=== PATIENT | female | born 1965 | race Caucasian/White ===

== ENCOUNTER 2016-10-31 18:45 | Emergency (ER) | payer BC ==
[~2016-10-31] VITALS: Ht 165.1 cm; Wt 68.0 kg
[2016-10-31 18:45] VITALS: BP 108/62
--- NOTE | 2016-10-31 18:59 | Emergency Room Report ---
History of Present Illness General Chief Complaint: Abdominal Pain Source: Patient, EMS Present Illness HPI Patient presents with complaints of lower abdominal pain Patient presents by paramedics 2 weeks ago patient had increased pain in the right lower abdominal region had CAT scan with oral and IV contrast at that time which revealed a likely ovarian cyst Patient last week had pelvic ultrasound again which showed likely ruptured ovarian cyst Patient reports that she was somewhat anemic as well and has been taking iron pills Earlier this evening just prior to arrival patient had an episode of acute pain in the mid lower abdomen with radiation bilaterally Patient was in contact with her OB physician and was sent to the emergency room Report of the pain is significantly better than previous at this time reports it is 3/10 patient had a vomiting episode with the pain Denies any previous abdominal surgeries Allergies: Coded Allergies: No Known Allergies (Unverified , 10/31/16) Patient History Past Medical History: see triage record Pertinent Family History: none Reviewed Nursing Documentation: PMH: Agreed, PSxH: Agreed Nursing Documentation-PMH Past Medical History: No History, Except For Hx Pacemaker: No - HYPOTHYROIDSM Hx Gastrointestinal Problems: Yes - OVARIAN CYST Review of Systems All Other Systems: negative except mentioned in HPI Physical Exam Vital Signs Date Time Temp Pulse Resp B/P (MAP) Pulse Ox O2 Delivery O2 Flow Rate FiO2 10/31/16 18:39 98.4 74 20 108/62 97 Room Air Sp02 EP Interpretation: reviewed, normal General Appearance: well appearing, no apparent distress Head: normocephalic, atraumatic Eyes: bilateral eye PERRL, bilateral eye EOMI ENT: hearing grossly normal, normal pharynx, TMs + canals normal, uvula midline Neck: full range of motion, supple, no meningismus, no bony tend Respiratory: lungs clear, normal breath sounds, no rhonchi, no respiratory distress, no retraction, no accessory muscle use Cardiovascular #1: normal peripheral pulses, regular rate, rhythm, no edema, no gallop, no JVD, no murmur Gastrointestinal: normal bowel sounds, soft, no mass, no organomegaly, non- distended, no guarding, no hernia, no pulsatile mass, no rebound, other - Mild discomfort reproduced mid lower abdominal, diplopia buccal region also bilaterally uncomfortable on palpation Genitourinary: no CVA tenderness Musculoskeletal: normal inspection Neurologic: oriented x3, responsive, transcript clerk III-XII nml as tested, motor strength/ tone normal, sensory intact Psychiatric: mood/affect normal Skin: normal color, no rash, warm/dry, palpation normal Lymphatic: normal inspection, no adenopathy Medical Decision Making Diagnostic Impression: Primary Impression: Peritonitis Additional Impression: Ruptured cyst of ovary ER Course With the patient's history and examination, multiple differentials considered, including but not limited to , ectopic , ovarian torsion, gastritis, cholecystitis, pancreatitis, appendicitis Patient's blood work reveals elevated white blood for count Ultrasound reveals a right-sided ovarian cyst/mass, with fluid in the pelvic area Given the elevated white blood cell count CT was obtained shows hemoperitoneum, moderate in nature no obvious signs of small bowel junction or diverticulitis, Patient initiated on IV antibiotics SIGNAL APPRENTICE and general surgery consulted emergently to the emergency room I did also speak to the patient's primary [facility] physician at this time given the patient's hemodynamic stability, it was felt the patient would benefit from continued care at primary site Labs Test 10/31/16 19:19 10/31/16 19:50 10/31/16 19:59 White Blood Count 18.1 K/UL (4.8-10.8) Red Blood Count 4.16 M/UL (4.20-5.40) Hemoglobin 13.3 G/DL (12.0-16.0) Hematocrit 38.5 % (37.0-47.0) Mean Corpuscular Volume 93 FL (80-99) Mean Corpuscular Hemoglobin 32.0 PG (27.0-31.0) Mean Corpuscular Hemoglobin Concent 34.5 G/DL (32.0-36.0) Red Cell Distribution Width 12.7 % (11.6-14.8) Platelet Count 246 K/UL (150-450) Mean Platelet Volume 10.8 FL (6.5-10.1) Neutrophils (%) (Auto) 89.5 % (45.0-75.0) Lymphocytes (%) (Auto) 6.0 % (20.0-45.0) Monocytes (%) (Auto) 3.2 % (1.0-10.0) Eosinophils (%) (Auto) 0.4 % (0.0-3.0) Basophils (%) (Auto) 1.0 % (0.0-2.0) Sodium Level 138 mEQ/L (135-145) Potassium Level 4.3 mEQ/L (3.4-4.9) Chloride Level 102 mEQ/L (98-107) Carbon Dioxide Level 25 mEQ/L (20-30) Anion Gap 11 (5-15) Blood Urea Nitrogen 10 mg/dL (7-23) Creatinine 0.7 mg/dL (0.5-0.9) Estimat Glomerular Filtration Rate > 60 mL/min (>60) Glucose Level 127 mg/dL (74-106) Calcium Level 9.1 mg/dL (8.6-10.2) Total Bilirubin 0.3 mg/dL (0.0-1.2) Aspartate Amino Transf (AST/SGOT) 13 U/L (5-40) Alanine Aminotransferase (ALT/SGPT) 8 U/L (3-33) Alkaline Phosphatase 97 U/L (35-104) Total Protein 7.0 g/dL (6.6-8.7) Albumin 4.0 g/dL (3.5-5.2) Globulin 3.0 g/dL Albumin/Globulin Ratio 1.3 (1.0-2.7) Lipase 31 U/L (< 60) Urine HCG, Qualitative Negative Urine Color Yellow Urine Appearance Clear Urine pH 6.5 (4.5-8.0) Urine Specific [place] 1.010 (1.005-1.035) Urine Protein Negative (NEGATIVE) Urine Glucose (UA) Negative (NEGATIVE) Urine Ketones 2+ (NEGATIVE) Urine Occult Blood Negative (NEGATIVE) Urine Nitrite Negative (NEGATIVE) Urine Bilirubin Negative (NEGATIVE) Urine Urobilinogen Normal MG/DL (0.0-1.0) Urine Leukocyte Esterase 1+ (NEGATIVE) Urine RBC 0-2 /HPF (0 - 2) Urine WBC 2-4 /HPF (0 - 2) Urine Squamous Epithelial Cells Few /LPF (NONE/OCC) Urine Bacteria Few /HPF (NONE) CT/MRI/US Diagnostic Results CT/MRI/US Diagnostic Results : Impression Pelvic ultrasound: Evidence of right-sided ovarian cyst, free fluid in the pelvic area, good flow to both ovaries CAT scan abdomen pelvis: Evidence of hemoperitoneum, no small bowel obstruction , Please refer to report for full detail Last Vital Signs Date Time Temp Pulse Resp B/P (MAP) Pulse Ox O2 Delivery O2 Flow Rate FiO2 10/31/16 18:39 98.4 74 20 108/62 97 Room Air Status: improved Disposition: XFER SHT-TRM HOSP Condition: Serious JO ANN MEEHAN D.O. Oct 31, 2016 18:59
[2016-10-31] MEDS ORDERED: Ketorolac 30mg Inj IV ONE (19:00)
[2016-10-31] MEDS ORDERED: IRON159 MG PO (19:13)
[2016-10-31] MEDS ORDERED: LEVOTHYROXINE112 MCG ORAL (19:13)
[2016-10-31 19:20] VITALS: BP 101/59
[2016-10-31 19:35] LABS: MEAN CORPUSCULAR HGB CONC 34.5 G/DL (32.0-36.0); MEAN CORPUSCULAR VOLUME 93 FL (80-99); MEAN PLATELET VOLUME 10.8 FL (6.5-10.1); PLATELET COUNT 246 K/UL (150-450); RED BLOOD COUNT 4.16 M/UL (4.20-5.40); RED CELL DISTRIBUTION WIDTH 12.7 % (11.6-14.8); WHITE BLOOD COUNT 18.1 K/UL (4.8-10.8)
[2016-10-31 19:36] LABS: EOSINOPHILS % (AUTO) 0.4 % (0.0-3.0); MONOCYTES % (AUTO) 3.2 % (1.0-10.0); NEUTROPHILS % (AUTO) 89.5 % (45.0-75.0)
[2016-10-31 19:57] LABS: ALANINE AMINOTRANSFERASE 8 U/L (3-33); ALBUMIN/GLOBULIN RATIO 1.3 (1.0-2.7); ANION GAP 11 (5-15); ASPARTATE AMINO TRANSFERASE 13 U/L (5-40); CALCIUM 9.1 mg/dL (8.6-10.2); CARBON DIOXIDE 25 mEQ/L (20-30); CHLORIDE 102 mEQ/L (98-107); CREATININE 0.7 mg/dL (0.5-0.9); GLOMERULAR FILTRATION RATE > 60 mL/min (>60); HEMOLYSIS 0; LIPASE 31 U/L (< 60); POTASSIUM 4.3 mEQ/L (3.4-4.9); SODIUM 138 mEQ/L (135-145)
[2016-10-31 20:12] LABS: APPEARANCE,URINE CLEAR; KETONES,URINE 2+ (NEGATIVE); LEUKOCYTE ESTERASE ,URINE 1+ (NEGATIVE); NITRITE,URINE NEGATIVE (NEGATIVE); PH,URINE 6.5 (4.5-8.0); PROTEIN,URINE NEGATIVE (NEGATIVE); UROBILINOGEN,URINE NORMAL MG/DL (0.0-1.0)
[2016-10-31 20:24] LABS: BACTERIA,URINE FEW /HPF; RBC,URINE 0-2 /HPF (0 - 2); SQUAMOUS EPITHELIAL CELL,UR FEW /LPF (NONE/OCC)
[2016-10-31] MEDS ORDERED: Piperacillin/Tazobactam 3.375 GM in NS 110 ML IVPB ONE (21:30)
[2016-10-31] MEDS ORDERED: Zosyn 3.375gm inj ONE (22:15)
[2016-10-31] MEDS: metroNIDAZOLE 500mg 100 ML IVPB ONE ×2 (22:37→22:50)
[2016-10-31 23:52] VITALS: BP 96/60
[2016-11-01 01:11] VITALS: BP 98/68
--- NOTE | 2016-11-01 10:01 | Diagnostic Imaging Report ---
Clinical Indication: Lower, pain Technique: No oral contrast utilized, per emergency room physician request IV administration nonionic contrast. Venous phase spiral acquisition obtained through the abdomen and pelvis. Multiplanar reconstructions were generated. Total dose length product 835 mGycm. CTDIvol(s) 14 mGy. Dose reduction achieved using automated exposure control Comparison: None. Correlation made with recent pelvic ultrasound Findings: Large circumscribed mixed attenuation fluid collection, possibly with a visible rim, is seen posterior into the left of the uterus. This measures 10 x 5.7 x 5 cm in diameter. Enhancing mixed echogenicity 5.6 x 4.6 cm mass is seen posterior to the uterus and immediately cephalad to the collection. Uncertain as whether this represents enlarged right ovary or an exophytic uterine fibroid, although most reconstructions appears to be separate from the uterus. There is a collapsed follicle in the left ovary. Separate from the main collection, high attenuation fluid, likely bloody fluid or justin blood, is seen anterior and superior to the uterus which it surrounds, as well as tracking into the mesenteric root and over the dome of the liver and spleen. The uterus is diffusely heterogeneous, contains an intrauterine device. No pelvic adenopathy demonstrated. The liver contains subcentimeter low-attenuation lesions which are too small to characterize. The gallbladder, bile ducts, pancreas, spleen, adrenals, left kidney are unremarkable. The right kidney demonstrates a lower pole 4 mm calyceal calculus. No hydronephrosis. No mesenteric or retroperitoneal mass or adenopathy. The included lung bases are clear except for minimal posterior dependent atelectatic changes. The bones are unremarkable. Impression: 10 x 5.7 x 5 cm circumscribed attenuation fluid collection with a visible rim adjacent to a markedly enlarged right ovary. Evidence of moderate hemoperitoneum. Findings are consistent with stated history of of ovarian cyst rupture. However, enlargement of the ovary as well as presence of an apparent rim surrounding the collection raises possibility of a ruptured partially cystic partially solid ovarian neoplasm. Enlargement of the ovary also raises possibility of ovarian torsion, although fairly strong enhancement argues against this. It is also possible but less likely that the is abnormal soft tissue represents an exophytic uterine fibroid Heterogeneous uterus, likely reflecting fibroid changes Evidence of ruptured left ovarian follicle Intrauterine device in place Subcentimeter low-attenuation liver lesions, too small to characterize, most likely benign simple cysts or bile hamartomas. No further followup necessary 4 mm nonobstructive right renal lower pole calyceal calculus Incidental finding minimal posterior dependent pulmonary atelectatic changes This agrees with the preliminary interpretation provided overnight by [facility] service. The CT scanner at [facility] is accredited by the [employer] and the scans are performed using protocols designed to limit radiation exposure to as low as reasonably achievable to attain images of sufficient resolution adequate for diagnostic evaluation.
--- NOTE | 2016-11-01 12:57 | Diagnostic Imaging Report ---
Indication: Right-sided pelvic pain Technique: Transabdominal and transvaginal images Comparison: None Findings: These measures 10.8 cm length of 4.7 cm AP. Endometrium contains an intrauterine device. It measures 11 mm thick.. Right ovary is enlarged, measures 7 x 7.4 x 7 cm there is heterogeneous, contains wall follicles. Complex fluid collection is seen adjacent to the right ovary, containing mixed low-level internal echoes. The left ovary measures 3.8 cm in length. No left adnexal mass demonstrated. Impression: Enlarged right ovary. Differential possibilities include ovarian mass, ovarian torsion Large hematoma seen surrounding the right ovary and uterus, consistent with stated clinical history of prior cyst rupture Normal left ovary Intrauterine device within the uterus
== END 2016-11-01 01:21 | disposition short-term general hospital (02) ==
LOC: EDBD 18:45 → EMR 19:30
DX: K65.9 Peritonitis, unspecified (principal); N83.202 Unspecified ovarian cyst, left side; N20.0 Calculus of kidney; Z97.5 Presence of (intrauterine) contraceptive device
CPT/HCPCS: 36415; 74177; 76830; 76856; 80053; 81003; 81025; 83690; 85025; 96365; 96366; 96375; 99285; J1885; J2543; Q9967